=== PATIENT | female | born 1960 | race Caucasian/White ===

== ENCOUNTER → 2017-07-14 | Outpatient (CLI) | payer OTHER, MEDICARE ==
--- NOTE | 2017-07-14 15:46 | MRI ---
HISTORY: Dizziness and giddiness. Patient reports vertigo x1 month. Study: MR brain without contrast. Comparison: None. Technique: Multiplanar multi-sequence MRI of the brain was obtained utilizing a standard departmental protocol. Findings: The midline structures are within normal limits. The evaluation of the brain parenchyma demonstrates no abnormal signal characteristics to suggest intraparenchymal mass or hemorrhage. No extra-axial f luid collections are observed. The ventricular system is symmetric and nondilated. The CP angle is normal in its appearance without brainstem mass or evidence for acoustic neuroma. The flow voids on both T1 and T2 weighted imaging are unremarkable. Evaluation of the diffusion weighted imaging does not demonstrate abnormal signal characteristics to suggest acute ischemic change. The extracranial structures are unremarkable. IMPRESSION: Unremarkable MRI of the brain without contrast. Reported By:
== END ==
LOC: RAD 13:03
PROVIDERS: ATTEND Psychiatry & Neurology Neurology
DX: R42 Dizziness and giddiness (principal)
CPT/HCPCS: 70551